=== PATIENT | female | born 2005 | race Two or more races ===

== ENCOUNTER 2024-10-08 21:52 | Emergency (ER) | payer OTHER, SELFPAY ==
[2024-10-08 22:15] VITALS: BP 172/100; PULSE 91; TEMP 37.2; O2SAT 99; BMI 46.3
--- NOTE | 2024-10-08 22:23 | US_ITS ---
[facility] [place] [id number] Patient Name: SUE BRUCE MRN: [id number] date: 2005 Sex: F Assigned Patient Location: ED.MAIN Current Patient Location: Accession/Order Number: [id number] Exam Date: 10/09/2024 08:08 Report Date: 10/09/2024 08:11 At the request of: RAI OLEA DO Procedure: US OB transvaginal OB ultrasound. Reason for exam:Vaginal bleeding. Comparison:None Technique: Abdominal imaging of the uterus and ovaries were obtained. Findings: No intrauterine is seen. Small amount of fluid is seen within the cervical canal. Endometrium does not appear to be thickened. No free fluid. Right ovary measures 2.9 x 2.8 x 1.8 cm. The left ovary measures 3.2 x 1.5 x 2.3 cm. US/US OB transvaginal Impression: No ultrasound evidence of intrauterine . Differential considerations includes early IUP, miscarriage or possibly ectopic , however no definitive evidence of ectopic is seen such as adnexal mass or complex free fluid. Correlation with beta hCG trend and repeat ultrasound is suggested to confirm viability. Impression dictated by: Aris Gilbert Jr., D.O. 10/09/2024 8:11 AM Dictation Location: [place] [address] Electronically authenticated by: [id number] Y Date: 10/09/2024 08:11
[2024-10-08 23:11] LABS: Hematocrit 37.2 % (36.0-48.0); Hemoglobin 12.1 g/dL (12.0-16.0); Immature Granulocytes Abs Auto 0.04 10^3/uL (0.00-0.03); Immature Granulocytes Pct Auto 0.4 % (0.0-0.5); Lymphocytes Absolute Auto 3.0 10^3/uL (1.2-3.8); Mean Corpuscular HGB Conc 32.5 g/dL (29.9-35.2); Mean Corpuscular Hemoglobin 26.7 pg (26.7-34.0); Mean Corpuscular Volume 82.1 fL (81.0-99.0); Platelet Count 280 10^3/uL (150-450); Red Blood Count 4.53 10^6/uL (4.20-5.40); White Blood Count 9.8 10^3/uL (4.0-11.0)
[2024-10-08 23:32] LABS: Alanine Aminotransferase 22 U/L (14-59); Albumin Globulin Ratio 0.9; Albumin Level 3.6 g/dL (3.4-5.0); Alkaline Phosphatase 81 U/L (46-116); Anion Gap 10.0; Aspartate Amino Transferase 16 U/L (15-37); Blood Urea Nitrogen 12.0 mg/dL (7.0-18.0); Calcium 9.0 mg/dL (8.5-10.1); Carbon Dioxide 26.9 mmol/L (21.0-32.0); Chloride 102 mmol/L (98-107); Estimated GFR (African America >60 (>=60 mL/min/1.73m^2); Estimated GFR (Non-African Ame >60 (>=60 mL/min/1.73m^2); Globulin 3.9 g/dL; Glucose 98 mg/dL (74-106); Potassium 3.9 mmol/L (3.5-5.1); Sodium 135 mmol/L (136-145); Total Protein 7.5 g/dL (6.4-8.2)
--- NOTE | 2024-10-09 02:21 | ED.GENADUL1 ---
HPI HPI - General Adult General Chief complaint: Vaginal Bleeding Stated complaint: vaginal bleeding Time Seen by Provider: 10/08/24 22:11 Source: patient Mode of arrival: walk-in Limitations: no limitations History of Present Illness HPI narrative: Patient is a 19-year-old healthy female presenting to the emergency department for evaluation of vaginal bleeding. Patient states she is 5 weeks by dates/home test. She has yet to have an ultrasound for this . She states that over the last 24 hours she has had a mild to moderate amount of vaginal bleeding and mild abdominal cramping. She states this is similar to the last time she had a miscarriage, at which time she required a D&C. She denies any other concerning symptoms such as fevers, chills, chest pain, shortness of breath, lightheadedness, fatigue, dizziness, nausea, or vomiting. No dysuria or hematuria. Related Data Home Medications ?Medication ?Instructions ?Recorded ?Confirmed albuterol sulfate 90 mcg/actuation inhalation 10/08/24 aerosol inhaler Allergies Allergy/AdvReac Type Severity Reaction Status Date / Time No Known Drug Allergies Allergy Verified 10/08/24 22:19 Review of Systems ROS Status of ROS 10 or more systems reviewed and unremarkable except as noted in history and below PFSH PFSH Social History Little interest or pleasure in doing things: not at all Feeling down, depressed, or hopeless: not at all Exam Narrative Exam Narrative: CONSTITUTIONAL: Well-appearing, answering questions and following commands appropriately SKIN: Was warm and dry. EYES: Sclerae white. No conjunctival pallor. EARS, NOSE, THROAT: Moist oral mucosa. RESPIRATORY: Clear to auscultation bilaterally, no wheezes, crackles, or stridor, no use of accessory muscles CARDIOVASCULAR: Normal rate and regular rhythm. There is no S3, S4, murmur, rub. GASTROINTESTINAL: Abdomen is soft, nondistended, and nontender. No rebound tenderness or guarding. MUSCULOSKELETAL: No peripheral edema. NEUROLOGIC: Patient is awake and alert. Facies were symmetrical. Constitutional Vital Signs, click to edit/add: Last Vital Signs Temp 99 F 10/08/24 22:15 Pulse 91 H 10/08/24 22:15 Resp 18 10/08/24 22:15 BP 172/100 H 10/08/24 22:15 Pulse Ox 99 10/08/24 22:15 O2 Del Method Room Air 10/08/24 22:15 Course Vital Signs Vital signs: Vital Signs Temperature 99 F 10/08/24 22:15 Pulse Rate 91 H 10/08/24 22:15 Respiratory Rate 18 10/08/24 22:15 Blood Pressure 172/100 H 10/08/24 22:15 Pulse Oximetry 99 10/08/24 22:15 Oxygen Delivery Method Room Air 10/08/24 22:15 Temperature 99 F 10/08/24 22:15 Pulse Rate 91 H 10/08/24 22:15 Respiratory Rate 18 10/08/24 22:15 Blood Pressure 172/100 H 10/08/24 22:15 Pulse Oximetry 99 10/08/24 22:15 Oxygen Delivery Method Room Air 10/08/24 22:15 Medical Decision Making MDM Narrative Medical decision making narrative: Patient is a healthy 19-year-old female presenting to the emergency department at approximately 5 weeks gestation by dates/home test for evaluation of vaginal bleeding and abdominal cramping. Vital signs on arrival are within normal limits. She is afebrile and hemodynamically stable. Her abdomen is soft, nontender, nondistended. She has no peritoneal signs. She does not appear to be significantly anemic. She is not having any active vaginal bleeding at this time. Differential diagnosis includes threatened , ectopic , uterine fibroids, or implantation bleeding. IV was established and laboratory studies were obtained. Transvaginal ultrasound was ordered to further investigate. Laboratory studies were significant for a very low beta-hCG of 16. Otherwise, no laboratory abnormalities. No electrolyte or metabolic derangement. No anemia or leukocytosis. Patient is O+ blood, does not require RhoGAM. Transvaginal ultrasound independently reviewed/interpreted by myself demonstrated no definitive intrauterine or evidence of ectopic . At this time, I do believe the patient's presentation is secondary to complete . She does already have a follow-up appoint with [facility] in 2 days, which I urged her to maintain. I do believe the patient is stable for discharge at this time. Return precautions were given including any new or worsening symptoms, including bleeding through more than 2 pads per hour for over 2 hours. Patient understands and agrees to the plan. Medical Records Medical records reviewed: Yes I reviewed the patient's medical records Lab Data Lab results reviewed: Yes I reviewed the patient's lab results Labs: Lab Results 10/08/24 Range/Units 22:55 WBC 9.8 (4.0-11.0) 10^3/uL RBC 4.53 (4.20-5.40) 10^6/uL Hgb 12.1 (12.0-16.0) g/dL Hct 37.2 (36.0-48.0) % MCV 82.1 (81.0-99.0) fL MCH 26.7 (26.7-34.0) pg MCHC 32.5 (29.9-35.2) g/dL RDW 14.6 (11.0-15.0) % Plt Count 280 (150-450) 10^3/uL MPV 10.2 (9.5-13.5) fL Neut % (Auto) 60.8 (43.0-75.0) % Lymph % (Auto) 30.5 (20.5-60.0) % [place] % (Auto) 6.5 (1.7-12.0) % Eos % (Auto) 1.5 (0.9-7.0) % Baso % (Auto) 0.3 (0.2-2.0) % Neut # (Auto) 6.0 (1.4-6.5) 10^3/uL Lymph # (Auto) 3.0 (1.2-3.8) 10^3/uL [place] # (Auto) 0.6 (0.3-0.8) 10^3/uL Eos # (Auto) 0.2 (0.0-0.7) 10^3/uL Baso # (Auto) 0.0 (0.0-0.1) 10^3/uL Abs Immat Gran (auto) 0.04 H (0.00-0.03) 10^3/uL Imm/Tot Granulo (auto) 0.4 (0.0-0.5) % Sodium 135 L (136-145) mmol/L Potassium 3.9 (3.5-5.1) mmol/L Chloride 102 (98-107) mmol/L Carbon Dioxide 26.9 (21.0-32.0) mmol/L Anion Gap 10.0 BUN 12.0 (7.0-18.0) mg/dL Creatinine 0.53 L (0.55-1.02) mg/dL Est GFR ( Amer) >60 (>=60 mL/min/1.73m^2) Est GFR (Non-Af Amer) >60 (>=60 mL/min/1.73m^2) BUN/Creatinine Ratio 22.6 Glucose 98 (74-106) mg/dL Calcium 9.0 (8.5-10.1) mg/dL Total Bilirubin 0.4 (0.2-1.0) mg/dL AST 16 (15-37) U/L ALT 22 (14-59) U/L Alkaline Phosphatase 81 (46-116) U/L Total Protein 7.5 (6.4-8.2) g/dL Albumin 3.6 (3.4-5.0) g/dL Globulin 3.9 g/dL Albumin/Globulin Ratio 0.9 HCG, Quant 16 mIU/mL Blood Type O Positive Antibody Screen Negative Imaging Data transvaginal ultrasound: Attestation: I personally reviewed and interpreted this imaging study as follows: Discharge Plan Discharge Chief Complaint: Vaginal Bleeding Clinical Impression: in first trimester Patient Disposition: Home, Self-Care Time of Disposition Decision: 23:45 Condition: Good Mode of Transportation: Private Vehicle Prescriptions / Home Meds: No Action albuterol sulfate 90 mcg/actuation HFA aerosol inhaler INHALATION Print Language: Cymraes Instructions: Miscarriage (ED) Referrals: Physician,Non-Staff, MD [Primary Care Provider] - 1 week Discharge Date/Time: 10/09/24 00:06
== END 2024-10-09 00:06 | disposition home or self-care (01) ==
PROVIDERS: Emergency Provider Student in an Organized Health Care Education/Training Program
DX: O03.9 Complete or unspecified spontaneous abortion without complication (principal); O26.891 Other specified pregnancy related conditions, first trimester
CPT/HCPCS: 36415; 76817; 80053; 84702; 85025; 86850; 86900; 86901; 87811; 87880; 99284